=== PATIENT | male | born 1985 | race Two or more races ===

== ENCOUNTER 2024-06-11 16:53 | Emergency (ER) | payer SELFPAY ==
[~2024-06-11] VITALS: Ht 175.3 cm; Wt 75.0 kg
[2024-06-11 16:55] VITALS: PULSE 150; RESP 30; TEMP 98.5; O2SAT 99
== END 2024-06-11 18:17 | disposition left against medical advice (07) ==
LOC: ER 16:58
DX: R41.82 Altered mental status, unspecified (principal); Z85.9 Personal history of malignant neoplasm, unspecified
CPT/HCPCS: 99283